=== PATIENT | male | born 1955 | race Asian ===

== ENCOUNTER 2016-08-06 15:50 | Observation (INO) | payer MEDICAID ==
--- NOTE | 2016-08-06 16:02 | CPEKG ---
Heart Rate: 58 RR Interval: 1034 P-R Interval: 200 QRSD Interval: 84 QT Interval: 412 QTC Interval: 405 P [place]: 37 QRS [place]: 57 T Wave [place]: 78 EKG Severity - NORMAL ECG - EKG Impression: SINUS RHYTHM Electronically Signed By: Juani Hills 06-Aug-2016 19:36:32
--- NOTE | 2016-08-06 16:10 | EDPHY ---
H & P Time Seen by Provider: 08/06/16 16:02 HPI/ROS: CHIEF COMPLAINT: Left-sided chest pain. HISTORY OF PRESENT ILLNESS: The patient is a 61-year-old male with a history of AK, diabetes, and 2 cardiac stents who presents with left-sided chest pain that began 2 days ago. The patient has been intermittent and moderate since onset and is sharp in nature. The pain radiates to his back and neck. This morning he had 2 episodes of chest pain, most recently 30 minutes ago. He was sitting just prior to arrival when he had onset left-sided chest pain that radiated to his back and neck. The pain lasted approximately 15 minutes and has now resolved. He denies alleviating or aggravating factors. The pain often begins while he is sitting. Per his son, this is a similar type of pain he has had with previous cardiac issues. He denies recent sickness, shortness of breath, fever, vomiting, diarrhea, or abdominal pain. REVIEW OF SYSTEMS: A complete 10-point review of systems was performed and is negative except for those items mentioned in the HPI. Past Medical/Surgical History: Cardiac stents x2, AK, diabetes, hypertension, hypercholesterolemia. Social History: Former smoker. Smoking Status: Former smoker Physical Exam: General Appearance: Alert, no distress Eyes: Pupils equal and round, no conjunctival pallor or injection ENT, Mouth: Mucous membranes moist Neck: Normal inspection Respiratory: Lungs are clear to auscultation Cardiovascular: Regular rate and rhythm Gastrointestinal: Abdomen is soft and non-tender Neurological: A&O, nonfocal, normal gait Skin: Warm and dry, no rash Extremities: Nontender, no pedal edema Psychiatric: Mood and affect normal Constitutional: Initial Vital Signs Temperature (C) 36.4 C 08/06/16 15:53 Heart Rate 58 L 08/06/16 15:53 Respiratory Rate 18 08/06/16 15:53 Blood Pressure 125/56 H 08/06/16 15:53 O2 Sat (%) 95 08/06/16 15:53 O2 Delivery Mode Room Air Allergies/Adverse Reactions: No Known Allergies Allergy (Verified 08/06/16 15:52) Home Medications: Medication Instructions Recorded Aspirin [Aspirin 81mg (*)] 81 mg PO DAILY 11/17/13 Clopidogrel Bisulfate [Plavix (*)] 75 mg PO DAILY 11/17/13 Lisinopril [Zestril 20 mg (*)] 10 mg PO DAILY 11/17/13 Metformin HCl [Metformin 1000 mg] 1,000 mg PO HS 11/17/13 Metformin HCl [Metformin 1000 mg] 1,500 mg PO DAILY 11/17/13 Metoprolol Tartrate [Lopressor 25 12.5 mg PO BID 11/17/13 mg (*)] Naylor-3 Fatty Acids [Fish Oil 1000 1,000 mg PO DAILY 11/17/13 mg (*)] Pravastatin Sodium [Pravachol] 40 mg PO DAILY 11/17/13 Vitamin B Complex [B Complex] 1 each PO DAILY 11/17/13 glipiZIDE [Glucotrol] 10 mg PO BID 11/17/13 Aspirin [Aspirin 81mg (*)] 81 mg PO DAILY 12/04/13 Clopidogrel Bisulfate [Plavix (*)] 75 mg PO DAILY 12/04/13 Lisinopril [Zestril 2.5 mg (*)] 2.5 mg PO DAILY 12/04/13 Metoprolol Succinate Xr [Toprol Xl 12.5 mg PO BID 12/04/13 25 mg (*)] Multivitamins [Multivitamin (*)] 1 each PO DAILY 12/04/13 Naylor-3 Fatty Acids [Fish Oil 1000 1,000 mg PO DAILY 12/04/13 mg (*)] glipiZIDE [Glucotrol 5 mg] 5 mg PO DAILY 12/04/13 metFORMIN HCL [Glucophage 500 mg 1,000 mg PO BIDMEAL 12/04/13 (*)] Atorvastatin Calcium [Lipitor 40 10 mg PO DAILY #30 tab 12/05/13 mg (*)] Medical Decision Making - Diagnostics EKG Interpretation: EKG interpreted by me reveals normal sinus rhythm, normal axis, normal intervals , ST and T segments normal. Interpretation: normal EKG Imaging: Imaging Impressions Chest X-Ray 08/06/16 16:14 Impression: Chronic coronary artery disease. No evidence for cardiac decompensation. ED Course/Re-evaluation: 61-year-old male with a history of AK, cardiac stents x2, and diabetes presents with 3 days of left-sided chest pain, similar to his previous cardiac pain. An IV was established and labs ordered, including Troponin. Chest x-ray and EKG obtained. Stat EKG reveals no evidence of ischemia or dysrhythmia. He took an aspirin this morning at home. I independently reviewed the patient's chest x-ray on the PACS system. My interpretation: no acute cardiopulmonary disease. See Imaging section for radiologist report. Patient remained asymptomatic throughout his emergency department stay. Given typical pain in a patient with known coronary artery disease,I feel that he should be admitted for further cardiac evaluation. director dental services reveals normal sinus rhythm. 1728: Consulted with Dr. Dalton, hospitalist. He accepts admission. Differential Diagnosis: Differential diagnosis includes though it is not limited to pneumonia, pneumothorax, pulmonary embolism, aortic dissection, pericarditis, acute coronary syndrome. - Data Points Laboratory Results: Laboratory Results 08/06/16 16:00 08/06/16 16:00 08/06/16 08/06/16 08/06/16 16:00 16:00 16:00 WBC RBC Hgb Hct MCV MCH MCHC RDW Plt Count MPV Neut % (Auto) Lymph % (Auto) Mccreary % (Auto) Eos % (Auto) Baso % (Auto) Nucleat RBC Rel Count Absolute Neuts (auto) Absolute Lymphs (auto) Absolute Monos (auto) Absolute Eos (auto) Absolute Basos (auto) Absolute Nucleated RBC Immature Gran % Immature Gran # D-Dimer < 0.27 ug/mLFEU ug/mLFEU (0.00-0.50) Sodium 135 mEq/L mEq/L (134-144) Potassium 5.2 mEq/L mEq/L (3.5-5.2) Chloride 103 mEq/L mEq/L (97-110) Carbon Dioxide 23 mEq/l mEq/l (22-31) Anion Gap 9 mEq/L mEq/L (8-16) BUN 19 mg/dL mg/dL (7-23) Creatinine 0.6 mg/dL L mg/dL (0.7-1.3) Estimated GFR > 60 Glucose 229 mg/dL H mg/dL (70-100) Calcium 9.4 mg/dL mg/dL (8.5-10.4) Troponin I < 0.012 ng/mL ng/mL (0-0.034) NT-Pro-B Natriuret Pep 28 pg/mL pg/mL (0-125) 08/06/16 16:00 WBC 6.34 10^3/uL 10^3/uL (3.80-9.50) RBC 4.55 10^6/uL 10^6/uL (4.40-6.38) Hgb 14.7 g/dL g/dL (13.7-17.5) Hct 41.5 % % (40.0-51.0) MCV 91.2 fL fL (81.5-99.8) MCH 32.3 pg pg (27.9-34.1) MCHC 35.4 g/dL g/dL (32.4-36.7) RDW 12.8 % % (11.5-15.2) Plt Count 212 10^3/uL 10^3/uL (150-400) MPV 9.6 fL fL (8.7-11.7) Neut % (Auto) 44.8 % % (39.3-74.2) Lymph % (Auto) 36.4 % % (15.0-45.0) Mccreary % (Auto) 8.4 % % (4.5-13.0) Eos % (Auto) 9.3 % H % (0.6-7.6) Baso % (Auto) 0.8 % % (0.3-1.7) Nucleat RBC Rel Count 0.0 % % (0.0-0.2) Absolute Neuts (auto) 2.84 10^3/uL 10^3/uL (1.70-6.50) Absolute Lymphs (auto) 2.31 10^3/uL 10^3/uL (1.00-3.00) Absolute Monos (auto) 0.53 10^3/uL 10^3/uL (0.30-0.80) Absolute Eos (auto) 0.59 10^3/uL H 10^3/uL (0.03-0.40) Absolute Basos (auto) 0.05 10^3/uL 10^3/uL (0.02-0.10) Absolute Nucleated RBC 0.00 10^3/uL 10^3/uL (0-0.01) Immature Gran % 0.3 % % (0.0-1.1) Immature Gran # 0.02 10^3/uL 10^3/uL (0.00-0.10) D-Dimer Sodium Potassium Chloride Carbon Dioxide Anion Gap BUN Creatinine Estimated GFR Glucose Calcium Troponin I NT-Pro-B Natriuret Pep Departure - Departure Disposition: [facility] Inpatient Acute Clinical Impression: Chest pain Qualifiers: Chest pain type: precordial pain Qualified Code(s): R07.2 - Precordial pain Report Scribed for: Juani Hills Report Scribed by: Fly Vail Date of Report: 08/06/16 Time of Report: 16:05
[2016-08-06 16:31] LABS: % IMMATURE GRANULYOCYTES 0.3 % (0.0-1.1); ABSOLUTE IMMATURE GRANULOCYTES 0.02 10^3/uL (0.00-0.10); ADD DIFF? NO; ADD MORPH? NO; ADD SCAN? NO; ATYPICAL LYMPHOCYTE FLAG 10 (0-99); FRAGMENT RBC FLAG 0 (0-99); HEMATOCRIT 41.5 % (40.0-51.0); HEMOGLOBIN 14.7 g/dL (13.7-17.5); LEFT SHIFT FLG 0 (0-99); LIPEMIA HEMOLYSIS FLAG 90 (0-99); MEAN CELL HEMOGLOBIN 32.3 pg (27.9-34.1); MEAN CELL HEMOGLOBIN CONCENTR. 35.4 g/dL (32.4-36.7); MEAN CELL VOLUME 91.2 fL (81.5-99.8); MEAN PLATELET VOLUME 9.6 fL (8.7-11.7); PLATELET CLUMPS FLAG 0 (0-99); PLATELET COUNT 212 10^3/uL (150-400); RED BLOOD CELL COUNT 4.55 10^6/uL (4.40-6.38); RED CELL DISTRIBUTION WIDTH 12.8 % (11.5-15.2)
[2016-08-06 17:09] LABS: ANION GAP 9 mEq/L (8-16); CALCIUM 9.4 mg/dL (8.5-10.4); CARBON DIOXIDE 23 mEq/l (22-31); CHLORIDE 103 mEq/L (97-110); CREATININE 0.6 mg/dL (0.7-1.3); GLOMERULAR FILTRATION RATE > 60; GLUCOSE 229 mg/dL (70-100); POTASSIUM 5.2 mEq/L (3.5-5.2); SODIUM 135 mEq/L (134-144)
[2016-08-06 17:19] LABS: TROPONIN I < 0.012 ng/mL (0-0.034)
[2016-08-06] MEDS ORDERED: NITROGLYCERIN 0.4 MG BTL SL PRN (17:57)
[2016-08-06] MEDS ORDERED: D50W 25 GM/50 ML SYR IVP PRN (17:58)
--- NOTE | 2016-08-06 18:34 | GHP ---
[f rep st] HISTORY AND PHYSICAL DATE OF ADMISSION: 08/06/2016 CHIEF COMPLAINT: Chest pain. HISTORY OF PRESENT ILLNESS: A 61-year-old man presents with left neck and arm pain. This started F riday, has been intermittent, is not exertional. He has a history notable for coronary artery disea se, where he received stents in 2004 and 2007. He has been compliant with all of his heart medicine s. He notes that this pain is very similar to what prompted him to present to the hospital in 2004 when he first received stents. He has not seen a television installer helper since 2013. Last stress test was in 2013 which was abnormal which prompted a catheterization by Dr. Ward which showed patent stents an d no interventions were taken on that hospitalization. This was done in November of 2013. He has not had any swelling in his legs. He has not had any decrease in his functional status overall. PAST MEDICAL/SURGICAL HISTORY: 1. Coronary artery disease, status post stents in 2004 and 2007. 2. Diabetes mellitus. 3. Hypertension. 4. Hyperlipidemia. MEDICATIONS: Please see medication reconciliation. ALLERGIES: No known drug allergies. FAMILY HISTORY: No coronary artery disease. SOCIAL HISTORY: He occasionally drinks wine. He does not smoke. REVIEW OF SYSTEMS: 10-point review of systems is conducted and is negative except per HPI. PHYSICAL EXAM: VITAL SIGNS: Blood pressure 128/67, heart rate 81, respiration rate 18, saturating 95% on room air. Temperature 36.8. GENERAL: The patient is a pleasant man, who is resting in bed, comfortable, in no acute distress. HEENT: Normocephalic, atraumatic. CARDIOVASCULAR: Regular ra te and rhythm. No murmurs, rubs, or gallops. No elevated JVD. No lower extremity edema. PULMONAR Y: Lungs clear to auscultation bilaterally with no rales. ABDOMEN: Soft, nontender, nondistended. SKIN: No rash. : No Taylor. NEUROLOGIC: Alert and oriented x3. He is moving all extremities . PSYCHIATRIC: Normal mood and affect. LABS: CBC is normal. Troponins negative. Creatinine 0.6, glucose 229. DATA: 1. I discussed the patient with Dr. Hills, will plan [facility]. 2. Chest x-ray, which I personally viewed and interpreted, shows nothing acute. 3. EKG, which I personally viewed and interpreted, shows sinus rhythm. There is nothing acutely is chemic. It is really unchanged from his prior. IMPRESSION/PLAN: A 61-year-old man with known coronary artery disease, status post 3 stents, presen with chest pain. 1. Chest pain: Similar to previous which were eventually revealed as angina. Will rule him out fo r acute myocardial infarction with serial troponins. I have ordered an exercise treadmill test for tomorrow, assuming he continues to be chest pain free. If his troponins rise or he has ongoing ches t pain, would consider alternative risk stratification. 2. Coronary artery disease, status post PCI x3: We will continue his cardiac medications. 3. Diabetes mellitus: We will continue his insulin, follow his blood sugars. 4. Hypertension: Continue his antihypertensives. 5. Code status: He would like to be full code. /[id number]/MODL
[2016-08-06] MEDS: INSULIN LISPRO 100 UNIT/ML SC SCH (19:04)
[2016-08-06] MEDS ORDERED: METOPROLOL TARTRATE 25 MG TAB PO SCH (21:00)
[2016-08-06] MEDS ORDERED: INSULIN DETEMIR 37 UNIT SQ SCH (21:00)
--- NOTE | 2016-08-06 21:20 | CPEKG ---
Heart Rate: 58 RR Interval: 1034 P-R Interval: 208 QRSD Interval: 80 QT Interval: 408 QTC Interval: 401 P [place]: 39 QRS [place]: 61 T Wave [place]: 67 EKG Severity - NORMAL ECG - EKG Impression: SINUS RHYTHM Electronically Signed By: Denny Nunez 07-Aug-2016 06:59:47
[2016-08-06] MEDS ORDERED: INSULIN GLARGINE 100 UNITS/ML SYRINGE SC SCH (22:30)
[2016-08-07] MEDS ORDERED: VITAMIN B COMPLEX 1 EA CAP/TAB PO SCH (09:00)
[2016-08-07] MEDS ORDERED: CLOPIDOGREL BISULFATE 75 MG TAB PO SCH (09:00)
[2016-08-07] MEDS ORDERED: ASPIRIN 325 MG TAB PO SCH (09:00)
[2016-08-07] MEDS ORDERED: ATORVASTATIN CALCIUM 40 MG TAB PO SCH (09:00)
[2016-08-07] MEDS ORDERED: OMEGA-3 FATTY ACIDS 1,000 MG CAP PO SCH (09:00)
[2016-08-07] MEDS ORDERED: LISINOPRIL 10 MG TAB PO SCH (09:00)
[2016-08-07] MEDS ORDERED: ASPIRIN 81 MG CHEWABLE TAB PO SCH (09:00)
[2016-08-07] MEDS: INSULIN LISPRO 100 UNIT/ML SC SCH (09:05)
[2016-08-07 10:43] VITALS: BP 139/79; PULSE 73; RESP 16; TEMP 97.2; O2SAT 95
--- NOTE | 2016-08-07 11:25 | CPR ---
[f rep st] NONINVASIVE CARDIAC PROCEDURE REPORT DATE OF PROCEDURE: 08/07/2016 REASON FOR TEST: 1. Known coronary artery disease. 2. Neck discomfort and left subscapular discomfort. ORDERING PHYSICIAN: Shahab Dalton MD, hospitalist. FINDINGS: Resting EKG shows a regular sinus rhythm with no ischemic changes. Resting blood pressur e 128/70, resting heart rate 70. Oxygen saturation 98. He is asymptomatic at this time. PROCEDURE: Exercise treadmill stress test according to the Steve protocol. He was exercised according to the Steve protocol for a total of 7 minutes. He reached a MET level o f 7.9, max heart rate 142, max blood pressure 182/76, max MET level 7.9. He did have lead 2 and lat eral lead intermittent upsloping with no symptoms. RECOVERY: He spontaneously recovered with no adverse symptoms, no ischemic changes. He did have up sloping of the inferior and lateral leads that was intermittent. I did ask Dr. Demetris Kaur to rev iew tracings. He feels there are no ischemic changes. I did visit with Dr. Stroud, his hospitalis t today, and reviewed the findings. At this time, he currently is stable to return to his room. He has not seen Dr. Ward for 2-3 years. It is recommended that he follow up with Dr. Ward in the next month. /[id number]/MODL
[2016-08-07] MEDS ORDERED: INSULIN LISPRO 100 UNIT/ML SC SCH (12:00)
--- NOTE | 2016-08-07 21:16 | GDS ---
[f rep st] DISCHARGE SUMMARY DISCHARGE DIAGNOSES: 1. Acute chest and back pain thought musculoskeletal. 2. Coronary artery disease status post stenting. 3. Diabetes mellitus. 4. Hypertension. 5. Hyperlipidemia. HISTORY OF PRESENT ILLNESS: A 61-year-old male who presents with complaints of chest pain. For det ails of patient's initial presentation, please see the history and physical dated 08/06/2016. Consu ltative services are none. PROCEDURES: On 08/07/2016 patient had an exercise treadmill test that shows no inducible ischemic c hanges. HOSPITAL COURSE: 1. Chest pain. The patient has known history. Although the description of his pain was atypical f or cardiac ischemia, patient was considered high risk, was admitted. Serial troponins and EKGs were followed. Patient ruled out overnight and was taken for graded treadmill testing, which was negati ve for ischemic changes. After examination and discussion with the patient, I am most convinced geovanny t this pain is likely musculoskeletal from his newer exercise regimen. We reviewed exercises, the u se of heat, cool, anti-inflammatories, and modifications of his lifting techniques. Patient will di scharge home using heat, anti inflammatories, and stretching methods reviewed by myself. 2. Hypertension. Patient's blood pressures remained well controlled on his home regimen. 3. Diabetes. Patient's blood sugars were adequate. No changes were made to his outpatient medicat ions. DISCHARGE MEDICATIONS: Please reference medication reconciliation printed on 08/07/2016. FOLLOWUP APPOINTMENTS: Include: 1. With his primary care provider as needed for post discharge followup. 2. With Dr. Ward on his normal cardiac scheduling routine in the next 1-2 months. I spent greater than 30 minutes in the planning, education, and coordination of this discharge. /[id number]/MODL
== END 2016-08-07 10:43 | disposition home or self-care (01) ==
LOC: F1N 18:11
PROVIDERS: ADMIT Student in an Organized Health Care Education/Training Program; ATTEND Student in an Organized Health Care Education/Training Program
DX: R07.89 Other chest pain (principal); M54.9 Dorsalgia, unspecified; I25.10 Atherosclerotic heart disease of native coronary artery without angina pectoris; Z95.5 Presence of coronary angioplasty implant and graft; E11.9 Type 2 diabetes mellitus without complications; I10 Essential (primary) hypertension; E78.5 Hyperlipidemia, unspecified; I25.2 Old myocardial infarction
CPT/HCPCS: 71020; 93005; 93017; G0378; J1815